=== PATIENT | female | born 1980 | race African-American/Black ===

== ENCOUNTER 2017-04-28 21:03 | Emergency (ER) | payer OTHER ==
[~2017-04-28] VITALS: Ht 165.1 cm; Wt 121.4 kg
[2017-04-29] MEDS ORDERED: ROBITUSSIN AC,T10 ML PO (00:17)
[2017-04-29] MEDS ORDERED: MEDROL DOSEPAK4 MG PO (00:17)
[2017-04-29] MEDS ORDERED: VENTOLIN HFA18 GM IH (00:17)
[2017-04-29] MEDS ORDERED: ZITHROMAX Z-PA250 MG PO (00:17)
[2017-04-29 00:37] VITALS: BP 119/73
== END 2017-04-29 00:48 | disposition home or self-care (01) ==
LOC: EME 21:03
DX: J01.90 Acute sinusitis, unspecified (principal); J20.9 Acute bronchitis, unspecified; H66.91 Otitis media, unspecified, right ear; F17.200 Nicotine dependence, unspecified, uncomplicated
CPT/HCPCS: 71020; 94640; 99281; 99284; J7512

== ENCOUNTER 2017-05-09 19:09 | Emergency (ER) | payer OTHER ==
[~2017-05-09] VITALS: Ht 165.1 cm; Wt 121.7 kg
[~2017-05-09 19:09] MED LIST: MEDROL DOSEPAK4 MG PO; ROBITUSSIN AC,T10 ML PO; VENTOLIN HFA18 GM IH; ZITHROMAX Z-PA250 MG PO
[2017-05-09 20:29] LABS: MCHC 32.6 G/DL (30.0-36.0); MEAN PLAT.VOLUME 11.4 uM^3 (9.5-12.4); PLATELET COUNT 248 K/uL (156-360); RBC DIS.WIDTH-CV 12.1 % (11.8-14.6); RBC DIS.WIDTH-SD 40.8 % (39-53); RED BLOOD COUNT 4.24 M/uL (3.80-5.20)
[2017-05-09 20:42] LABS: CHLORIDE 106 mEq/L (99-109); POTASSIUM 4.3 mEq/L (3.7-5.4); SODIUM 140 mEq/L (136-147)
[2017-05-09 20:44] LABS: GLUCOSE 116 mg/dL (70-99)
[2017-05-09 20:45] LABS: ANION GAP 8 MEQ/L (2-14)
[2017-05-09 20:46] LABS: TOTAL BILIRUBIN 0.2 mg/dL (0.0-1.0)
[2017-05-09 20:47] LABS: ALKALINE PHOSPHATASE 68 IU/L (3-129)
[2017-05-09 20:48] LABS: GFR ESTIMATE (CALCULATED) > 59 mL/min/
[2017-05-09 20:49] LABS: UREA NITROGEN (BUN) 11 mg/dL (9-23)
[2017-05-09 21:02] LABS: QUANTITATIVE HCG < 4.0 MIU/ML
[2017-05-09] MEDS ORDERED: ALLEGRA-D 121 TABLET PO (22:36)
[2017-05-09] MEDS ORDERED: FIORICET 50-301 EACH PO (22:36)
[2017-05-09] MEDS ORDERED: AUGMENTIN875 MG PO (22:36)
[2017-05-09 22:46] VITALS: BP 121/88
== END 2017-05-09 22:49 | disposition home or self-care (01) ==
LOC: EME 19:09
PROVIDERS: Physician Assistant
DX: J32.9 Chronic sinusitis, unspecified (principal); H65.90 Unspecified nonsuppurative otitis media, unspecified ear; R51 Headache; F17.200 Nicotine dependence, unspecified, uncomplicated
CPT/HCPCS: 70450; 80053; 84702; 85027; 99281; 99284; J1200; J1885; J2765; J7030

== ENCOUNTER 2017-10-13 11:54 | Emergency (ER) | payer SELFPAY ==
[~2017-10-13] VITALS: Ht 162.6 cm; Wt 125.4 kg
[~2017-10-13 11:54] MED LIST changes: +ALLEGRA-D 121 TABLET PO; +AUGMENTIN875 MG PO; +FIORICET 50-301 EACH PO
[2017-10-13] MEDS ORDERED: MOTRIN600 MG PO (13:56)
[2017-10-13] MEDS ORDERED: AMOXICILLIN875 MG PO (13:56)
[2017-10-13 14:04] VITALS: BP 124/78
== END 2017-10-13 14:06 | disposition home or self-care (01) ==
LOC: EME 11:54
DX: J02.0 Streptococcal pharyngitis (principal); R51 Headache; F17.200 Nicotine dependence, unspecified, uncomplicated
CPT/HCPCS: 87651 90; 99281; 99283

== ENCOUNTER 2018-05-21 22:27 | Emergency (ER) | payer OTHER ==
[~2018-05-21] VITALS: Ht 162.6 cm; Wt 124.7 kg
[~2018-05-21 22:27] MED LIST changes: +AMOXICILLIN875 MG PO; +MOTRIN600 MG PO
[2018-05-21 22:48] LABS: HEMATOCRIT 37.7 % (36.0-46.0); HEMOGLOBIN 12.7 G/DL (11.9-15.5); MCH 30.7 PG (29.0-34.0); MCHC 33.7 G/DL (30.0-36.0); MCV 91.1 FL (83-99); RBC DIS.WIDTH-CV 12.4 % (11.8-14.6); RBC DIS.WIDTH-SD 41.1 % (39-53); RED BLOOD COUNT 4.14 M/uL (3.80-5.20); WHITE BLOOD COUNT 9.9 K/uL (4.1-10.2)
[2018-05-21 22:55] LABS: CHLORIDE 102 mEq/L (99-109); POTASSIUM 3.8 mEq/L (3.7-5.4); SODIUM 139 mEq/L (136-147)
[2018-05-21 22:57] LABS: GLUCOSE 116 mg/dL (70-99)
[2018-05-21 23:01] LABS: CREATININE 0.9 mg/dL (0.6-1.3); GFR ESTIMATE (CALCULATED) > 59 mL/min/
[2018-05-21 23:02] LABS: UREA NITROGEN (BUN) 11 mg/dL (9-23)
[2018-05-22] MEDS ORDERED: PREDNISONE10 M1 PO (00:04)
[2018-05-22 00:27] LABS: PLAT.SUFFICIENCY ADEQUATE; PLATELET COUNT 217 K/uL (156-360)
[2018-05-22 00:28] VITALS: BP 137/86
== END 2018-05-22 00:30 | disposition home or self-care (01) ==
LOC: EME 22:27
PROVIDERS: Physician Assistant
DX: J40 Bronchitis, not specified as acute or chronic (principal); F17.200 Nicotine dependence, unspecified, uncomplicated
CPT/HCPCS: 71046; 80048; 85027; 87502; 94640; 99281; 99285; J1100